=== PATIENT | male | born 1960 | race African-American/Black ===

== ENCOUNTER 2021-02-28 07:47 | Inpatient (IN) | payer OTHER ==
[~2021-02-28] VITALS: Ht 172.7 cm; Wt 84.6 kg
[2021-02-28 09:36] LABS: BASOPHILS % 0.1 % (0.0-2.0); EOSINOPHILS % 0.3 % (0.0-5.0); HEMATOCRIT. 40.4 % (42.0-52.0); MEAN CORPUSCULAR HEMOGLOBIN 23.5 pg (28.0-32.0); MEAN CORPUSCULAR VOLUME 72.8 fL (80.0-94.0); MONOCYTES % 9.8 % (2.0-8.0); NEUTROPHILS % 77.8 % (40.0-76.0); PLATELET 177 x1000/uL (130-400); RED BLOOD CELL COUNT 5.54 mill/uL (4.7-6.1); RED CELL DISTRIBUTION WIDTH 15.9 % (11.6-14.6)
[2021-02-28 09:43] LABS: CHLORIDE 102 mEq/L (98-107)
[2021-02-28] MEDS ORDERED: NITROGLYCERIN 0.4MG TABLET SL SL PRN (11:30)
[2021-02-28] MEDS ORDERED: DOCUSATE SODIUM 100MG CAPSULE PO PRN (11:30)
[2021-02-28] MEDS ORDERED: CLONIDINE 0.1MG TABLET PO PRN (11:30)
[2021-02-28] MEDS ORDERED: MAGNESIUM/ALUMINUM HYDROXIDE/SIMETHICONE 30ML UDC PO PRN (11:30)
[2021-02-28] MEDS ORDERED: ONDANSETRON HCL 4MG/2ML INJ IV PRN (11:30)
[2021-02-28] MEDS: ENOXAPARIN 40MG/0.4ML SYR SUBCUT SCH (11:30)
[2021-02-28] MEDS ORDERED: ACETAMINOPHEN 325MG TABLET PO PRN ×2 (11:30)
[2021-02-28] MEDS ORDERED: ZOLPIDEM TARTRATE 5MG TABLET PO PRN (11:30)
[2021-02-28] MEDS ORDERED: KETOROLAC 15MG/ML VIAL IV PRN (11:30)
[2021-02-28] MEDS ORDERED: IPRATROPIUM/ALBUTEROL 0.5-3(2.5)MG/3ML NEB NEB PRN (11:30)
[2021-02-28] MEDS ORDERED: GUAIFENESIN 200MG/10ML SUGAR FREE UDC PO PRN (11:30)
[2021-02-28 12:20] LABS: ETHANOL BLOOD < 10 mg/dL
[2021-02-28 12:22] LABS: TOTAL IRON BINDING CAPACITY 311 ug/dL (250-450)
[2021-02-28 12:40] LABS: FOLIC ACID (FOLATE) SERUM 8.5 ng/mL (>5.38)
[2021-02-28 14:53] LABS: *AMPHETAMINES SCREEN URINE NEGATIVE (NEGATIVE); *BARBITURATES SCREEN URINE NEGATIVE (NEGATIVE); *BENZODIAZEPINES SCREEN URINE NEGATIVE (NEGATIVE); *COCAINE SCREEN URINE NEGATIVE (NEGATIVE)
[2021-02-28 14:54] LABS: CANNABINOID URINE SCREEN NEGATIVE (NEGATIVE); METHADONE URINE SCREEN NEGATIVE (NEGATIVE); OPIATES URINE SCREEN NEGATIVE (NEGATIVE); PHENCYCLIDINE URINE SCREEN NEGATIVE (NEGATIVE)
[2021-02-28 18:12] LABS: CREATINE KINASE 124 IU/L (39-308)
[2021-02-28 18:14] LABS: CREATINE KINASE MB FRACTION < 1.0 ng/mL (0.5-3.6)
[2021-02-28] MEDS: FAMOTIDINE 20MG TABLET PO SCH (21:00)
[2021-02-28 21:18] VITALS: BP 147/94
[2021-02-28] MEDS ORDERED: LOSA25TA26 PO (23:54)
[2021-02-28] MEDS ORDERED: AMLO10TA80 PO (23:54)
[2021-02-28] MEDS ORDERED: CHLO25TA2 PO (23:54)
[2021-03-01] VITALS: BP 134/73
[2021-03-01 00:30] LABS: CREATINE KINASE 120 IU/L (39-308)
[2021-03-01 00:31] LABS: CREATINE KINASE MB FRACTION < 1.0 ng/mL (0.5-3.6)
[2021-03-01 04:00] VITALS: BP 127/63
[2021-03-01 08:00] VITALS: BP 124/85
[2021-03-01 08:41] LABS: BASOPHILS % 0.2 % (0.0-2.0); EOSINOPHILS % 0.7 % (0.0-5.0); HEMATOCRIT. 38.4 % (42.0-52.0); HEMOGLOBIN. 12.5 g/dL (14.0-18.0); MEAN CORPUSCULAR HEMOGLOBIN 23.9 pg (28.0-32.0); MEAN CORPUSCULAR VOLUME 73.2 fL (80.0-94.0); MEAN PLATELET VOLUME 7.2 fl (7.4-10.4); MONOCYTES % 10.5 % (2.0-8.0); NEUTROPHILS % 64.6 % (40.0-76.0); PLATELET 182 x1000/uL (130-400); RED BLOOD CELL COUNT 5.25 mill/uL (4.7-6.1); RED CELL DISTRIBUTION WIDTH 16.2 % (11.6-14.6)
[2021-03-01 09:01] LABS: PHOSPHORUS 3.4 mg/dL (2.5-4.9)
[2021-03-01] MEDS: ASPIRIN 325MG EC TABLET PO SCH (09:24)
[2021-03-01] MEDS: ENOXAPARIN 40MG/0.4ML SYR SUBCUT SCH (11:40)
[2021-03-01] MEDS: SODIUM CHLORIDE 0.9% 1,000 ML IV SCH (11:40)
[2021-03-01 12:00] VITALS: BP 120/70
[2021-03-01 16:00] VITALS: BP 131/75
[2021-03-01 20:00] VITALS: BP 128/68
[2021-03-01] MEDS: FAMOTIDINE 20MG TABLET PO SCH (20:21)
[2021-03-02] VITALS (7 sets, daily range): BP systolic 114–141; BP diastolic 53–91
[2021-03-02] MEDS: SODIUM CHLORIDE 0.9% 1,000 ML IV SCH (00:53)
[2021-03-02] MEDS: ASPIRIN 325MG EC TABLET PO SCH (08:14)
[2021-03-02 08:22] LABS: CHLORIDE 104 mEq/L (98-107)
[2021-03-02 08:35] LABS: BASOPHILS % 0.3 % (0.0-2.0); EOSINOPHILS % 0.7 % (0.0-5.0); HEMATOCRIT. 34.8 % (42.0-52.0); HEMOGLOBIN. 11.6 g/dL (14.0-18.0); LYMPHOCYTES % 23.2 % (20.0-50.0); MEAN CORPUSCULAR VOLUME 72.1 fL (80.0-94.0); MEAN PLATELET VOLUME 7.3 fl (7.4-10.4); MONOCYTES % 10.9 % (2.0-8.0); NEUTROPHILS % 64.9 % (40.0-76.0); PLATELET 190 x1000/uL (130-400); RED BLOOD CELL COUNT 4.82 mill/uL (4.7-6.1); RED CELL DISTRIBUTION WIDTH 15.9 % (11.6-14.6)
[2021-03-02] MEDS: ENOXAPARIN 40MG/0.4ML SYR SUBCUT SCH (12:41)
[2021-03-02] MEDS: FAMOTIDINE 20MG TABLET PO SCH (21:24)
[2021-03-03] VITALS: BP 138/82
[2021-03-03 04:00] VITALS: BP 124/62
[2021-03-03 08:00] VITALS: BP 146/98
[2021-03-03] MEDS: ASPIRIN 325MG EC TABLET PO SCH (09:37)
== END 2021-03-03 11:00 | disposition home or self-care (01) | DRG 204 ==
LOC: ER 08:41 → MICUSO 15:54 → 8WST 21:18
PROVIDERS: ADMIT Internal Medicine; ATTEND Internal Medicine
DX: R55 Syncope and collapse (principal); N17.0 Acute kidney failure with tubular necrosis; D63.8 Anemia in other chronic diseases classified elsewhere; I10 Essential (primary) hypertension; Z20.822 Contact with and (suspected) exposure to COVID-19
CPT/HCPCS: 36415; 70551; 71045; 80053; 80305; 80320; 82550; 82553; 82607; 82746; 83036; 83540; 83550; 83735; 83880; 84100; 84145; 84443; 84484; 85025; 87426; 93005; 93970; 99285; J1650; J7030; G0480